=== PATIENT | male | born 1980 | race Caucasian/White ===

== ENCOUNTER 2016-12-10 01:57 | Inpatient (IN) | payer BC ==
--- NOTE | ~2016-12-10 | A ---
[facility] Nutrition Therapy DATE: 12/11/16 Patient: AVNI SHEA Physician: PRATIK Address: [address] [place] [address] Room/Bed: [address] [place] [address], Zip: [place] [address] Admit Date: 12/10/16 Date of : [birth year] Height: 6 1 Weight: 268 122 NUTRITIONAL ASSESSMENT: REASON: Consult re: DM diet education 36 y/o male admitted for angina PMH: DM, HTN, CAD Anthropometrics: ht: 6'1" wt: 268# (122 kg) BMI 35 Labs: Glu 212, Accuchecks 239-331, Na+ 132, Cl- 97, BUN 45, Creat 2.6, Phos 4.8, GFR 30.6 Diet: Consistent carbohydrate Assessment: Chart reviewed, events noted. Pt seen for consult re: DM diet education. RD internet programmer visited pt aT bedside and provided written and verbal education on carbohydrate counting, providing examples of healthy foods and meal ideas. RD internet programmer answered pt's questions on what fruits and vegetables are best for him to eat. No other questions at this time. RD will remain available. Intervention: 1. DM diet education Recommendations: 1. Follow DM diet when d/c'd. Encourage compliance of diet. 2. This pt would benefit from following-up with an outpatient dietitian to assist with diabetes management. RD will f/u per protocol. Respectfully, KAI IZQUIERDO, strategy intern Paris Levy MS, RD, LD [facility] cc: client file
--- NOTE | ~2016-12-10 | EKG ---
PATIENT: AVNI SHEA UNIT #: [id number] Ventricular Rate: 100 BPM Atrial Rate: 100 BPM P-R Interval: 130 ms QRS Duration: 108 ms Q-T Interval: 346 ms QTC Calculation(Bezet): 446 ms P Byers: 38 degrees Calculated R Byers: 25 degrees Calculated T Byers: 49 degrees Diagnosis Line: Normal sinus rhythm Diagnosis Line: Normal ECG Diagnosis Line: No previous ECGs available Diagnosis Line: Confirmed by KATHY BUTTERFIELD MD ([id number]) on Diagnosis Line: 12/11/2016 10:34:06 AM INTERPRETING MD: SCOUT MOHAMUD
--- NOTE | ~2016-12-10 | CO ---
Unit #: [id number] #: [id number] Patient: AVNI SHEA [id number] [address] [place], [place] [address] [id number] I MR#: [id number] NAME: AVNI SHEA ROOM: 554 Age: 36 Sex: M Admission Date: 12/10/2016 : 1980 Attending Physician: Kaitlin Randhawa M.D. Primary Care Physician: Primary Care Physician No CONSULTATION REPORT REFERRING PHYSICIAN Kelli Aleman NP CONSULTING SERVICE [facility]. CONSULTING PHYSICIAN Dr. Parker. REASON FOR CONSULTATION Acute kidney injury HISTORY OF PRESENT ILLNESS The patient is a 36-year-old white male with history of chronic kidney disease, hypertension, diabetes mellitus type 2, nonischemic cardiomyopathy, who was admitted with chest pain over the last four days. While working third shift last night, he developed acute tightening of the chest with associated nausea and vomited. He states his blood glucose was around 400 at the time. Creatinine was 2.8 upon arrival, with a blood glucose of 323. The patient is followed by my partner, Dr. Metcalf, for chronic kidney disease, but is unsure of his baseline creatinine and there are no prior values in the EMR here. He denies any recent diarrhea, notes some constipation. No recent anti-inflammatory use. He reports some intermittent ankle swelling. He also complains of some mild dysuria, but denies any gross hematuria or urinary hesitancy. He has a history of coronary artery disease status post percutaneous coronary intervention. Cardiac catheterization from September 2015 showed noncritical disease of right coronary artery. A left ventriculogram at that time demonstrated an ejection fraction of 40-45%. PAST MEDICAL HISTORY 1. Chronic kidney disease, baseline creatinine unknown at this time. 2. Hypertension. 3. Diabetes mellitus type 2, insulin dependent. 4. Coronary artery disease status post percutaneous coronary intervention. 5. Nonischemic cardiomyopathy, ejection fraction 40-45% on a LV gram during a cardiac catheterization September 2015. 6. Dyslipidemia. 7. Obstructive sleep apnea, untreated. FAMILY HISTORY No chronic kidney disease SOCIAL HISTORY Unit #: [id number] #: [id number] Patient: AVNI SHEA No tobacco, alcohol or illicit substances. HOME MEDICATIONS 1. Lisinopril 40 mg p.o. daily 2. Humalog 75/25 insulin 3. Vascepa 1 gram p.o. b.i.d. 4. Crestor 40 mg p.o. daily 5. Fenofibrate 150 mg p.o. daily 6. Glipizide 10 mg p.o. b.i.d. 7. Zofran as needed for nausea ALLERGIES No known drug allergies REVIEW OF SYSTEMS General: No fevers, chills or night sweats. "He denied vision changes or congestion." Cardiovascular: Chest pain, left substernal, off and on over the last four days. Intermittent lower extremity swelling also present. GI: Nausea with one episode of emesis last night, now improved. Constipation present. No melena. Genitourinary: Some dysuria present. No gross hematuria or hesitancy. Musculoskeletal: No joint pain, redness or swelling. Hematologic: No bruising or bleeding. Dermatologic: No rash. Psychiatric: No anxiety or depression. Neurologic: No headaches, dizziness, seizures, syncope. PHYSICAL EXAMINATION VITAL SIGNS: Temperature 98, blood pressure 135/82, heart rate 83, respirations 18. GENERAL: The patient is a pleasant, obese, young white male in no acute distress, comfortable and alert. HEENT: Oropharynx clear, moist. NECK: Supple. No JVD. LUNGS: Clear to auscultation bilaterally. No rales or rhonchi. CARDIAC: Regular rate and rhythm. No murmurs. Reproducible chest wall tenderness left upper sternum. ABDOMEN: Soft, nontender, nondistended. Bowel sounds are present. VASCULAR: No pedal or ankle edema. Two plus radial pulses. DERMATOLOGIC: Normal skin turgor. No rash. A tattoo present on his left forearm. MUSCULOSKELETAL: No joint warmth or erythema. NEUROLOGIC: Oriented to person, place and time. Speech normal. DIAGNOSTIC STUDIES LABORATORY: WBC 15.3, hemoglobin 15.5, platelets 315,000. Troponin less than 0.05 x3. Sodium 127, potassium 3.8, chloride 93, bicarbonate 23, BUN 43, creatinine 2.8, glucose 323, calcium 9.7. Liver function tests normal. CK total 112. Total cholesterol 301, triglycerides 1819, HDL 28, LDL unable to calculate. IMAGING: Chest x-ray shows no active disease. ASSESSMENT 1. Acute kidney injury: This is presumed as baseline creatinine is unknown at this time. This may represent prerenal azotemia from volume depletion given episode of hyperglycemia associated with Unit #: [id number] #: [id number] Patient: AVNI SHEA nausea and emesis last night. Also on NELSY inhibitor. Given dysuria, we will also check post void residual, although urinary retention is unlikely given his age. Electrolytes are stable, notable for mild hyponatremia (sodium corrects to 130, accounting for hyperglycemia). 2. Chronic kidney disease: Sees Dr. Metcalf in our office. We will request records. Multiple chronic kidney disease risk factors including diabetes mellitus, hypertension, atherosclerotic cardiovascular disease. We will check urinalysis for proteinuria and for dysuria. 3. Chest pain: Cardiology is following, cardiac enzymes are negative. Stress test was done earlier today, report pending. 4. History of coronary artery disease status post percutaneous coronary intervention. 5. Hypertension: Blood pressure is stable, but we will hold NELSY inhibitor in the setting of possible acute kidney injury. 6. Nonischemic cardiomyopathy: Ejection fraction 40% on left ventriculogram on cardiac catheterization last year. Compensated currently with no peripheral or pulmonary edema. 7. Diabetes mellitus type 2: The patient hyperglycemic with blood glucose of 323 upon admission. He states it was in the low 400s last night at work. 8. Hypertriglyceridemia: Severe. On extensive regimen including Crestor, Fenofibrate, Vascepa. Of note, CK total is normal. 9. Leukocytosis. PLAN 1. We will give one liter of normal saline this evening. 2. Hold Lisinopril. 3. Start beta nevaeh in place of this. 4. Check urinalysis and post void residual bladder scan. 5. We will review office records to ascertain baseline renal function. 6. Follow up stress test result. Thank you for involving me in patient's care. We will follow along. Dictated by... Oliverio Parker M.D. MMS/to TD: 12/10/2016 21:52 JOB #: [id number] Unit #: [id number] #: [id number] Patient: AVNI SHEA CONSULTATION REPORT Page 1 of 1 X X CONSULTATION REPORT
--- NOTE | ~2016-12-10 | CR72 ---
[facility] A Service of [facility] RADIOLOGY TEXT RESULTS PATIENT: AVNI SHEA LOCATION: [facility] 55- : [birth year] UNIT #: [id number] AGE: [address]: Kaitlin Randhawa MD SEX: M ORDER DR: [id number] [facility] [address] [facility]. [place], [place] [address] [id number] MR#: [id number] Acc #: [id number] NAME: AVNI SHEA : 1980 SEX: M STUDY DATE/TIME: 12/10/2016 2:35 UNIT: [facility] ROOM: [facility] STUDY DESCRIPTION: CR Chest Single View Portable Attending Physician: Kaitlin Randhawa M.D. Ordering Physician: Ed Jason Tamayo M.D. Primary Care Physician: Primary Care Physician No MEDICAL IMAGING REPORT This report is preliminary unless electronic signature is present EXAM Portable chest INDICATION Chest pain, shortness of air x2 days. FINDINGS A portable view of the chest was obtained. The heart size and vascularity are normal and the lungs are clear and the bones are unremarkable. IMPRESSION No active disease. Dictated by... Forrest Funk M.D. THIS IS AN ELECTRONICALLY VERIFIED REPORT Forrest Funk M.D. at 12/10/2016 5:48 AM OPAL/hermelinda TD: 12/10/2016 04:50 JOB #: [id number] MEDICAL IMAGING REPORT Page 1 of 1 COPY
--- NOTE | ~2016-12-10 | DS ---
Unit #: [id number] #: [id number] Patient: AVNI VARGAS [id number] [address] [place], [place] [address] [id number] I MR#: [id number] NAME: AVNI VARGAS ROOM: 554 Age: 36 Sex: M Admission Date: 12/10/2016 : 1980 Discharge Date: Attending Physician: Roberta Tamayo M.D. Primary Care Physician: Primary Care Physician No DISCHARGE SUMMARY PRIMARY CARE PHYSICIAN Paramjit Locke M.D. PRINCIPAL DIAGNOSES 1. Atypical chest pain with pending Cardiolite stress test results. 2. Acute kidney injury on chronic kidney disease stage 3-4. Discharge creatinine 2.6. 3. 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 4. Diabetes mellitus type 2 insulin-requiring and uncontrolled, pending hemoglobin A1c. 5. Severe Hypertriglyceridemia secondary to uncontrolled diabetes. 6. Hyperlipidemia. 7. Diabetic gastroparesis. 8. Diabetic peripheral neuropathy. 9. Obstructive sleep apnea, noncompliant with CPAP. 10. Obesity. 11. Hypertension. CONSULTANTS Stevo Edge M.D. - Cardiology Oliverio Parker M.D. - Nephrology PROCEDURES 1. Cardiolite stress test results, which are currently pending and will be dictated as an addendum. 2. Chest x-ray on December 10, 2016, without any acute findings. CLINICAL HISTORY/HOSPITAL COURSE Mr. Vargas is a 36-year-old male with chronic uncontrolled diabetes, renal disease and coronary artery disease, who was brought from work due to the fact that he was hyperglycemic and feeling fatigued in addition to nauseas. Please refer to H and P for further details. The patient was also complaining of atypical left-sided chest pain and was initially admitted by Cardiology for evaluation. In regards to the patient's chest pain, troponins remain negative. He did undergo a Cardiolite stress test, but results are currently pending. I will follow up on these. The patient is followed by Dr. Greg Li, in [place]. Per our records, the patient had a catheterization in 2016, with RCA disease, which was minimal and he was undergoing medical treatment only. We will be sure he is back on aspirin in addition to appropriate other medications. Assuming Cardiolite stress test is negative, he can Unit #: [id number] #: [id number] Patient: AVNI VARGAS follow up with Dr. Li as an outpatient. The patient was also hyperglycemic upon presentation. Glucose upon presentation was 323. The patient is taking Novolog 75/25 four times a day at home per sliding scale. He tells me when sugar gets below 200 he feels shaky and does not take his insulin. I suspect his A1c is significantly elevated greater than 12 and he needs better sugar control. However, he has had no evidence of any hyperosmolar state here or DKA. I am going to schedule his Novolog 75/25 t.i.d. and he will receive diabetic education. He will follow up with his primary care provider. He would benefit from a long-acting and short-acting insulin nursing home if this is not cost prohibitive. The patient is also complaining of nausea, which is chronic. He describes early satiety and nausea associated with eating. I suspect due to his uncontrolled diabetes, he has diabetic gastroparesis and I am going to place him on a low-dose of Reglan. Ultimately he needs better sugar control. The patient is also found to have significant hypertriglyceridemia with triglycerides greater than 1400. LDL could not be calculated. We will continue medications, but ultimately again, he needs diet control and sugar control. In regards to the patient's acute kidney injury, creatinine upon presentation was elevated at 2.8. The patient has seen Dr. Metcalf with [facility] in 2016. He is seen in the hospital by Dr. Metcalf's partner, Dr. Parker. NELSY inhibitor was held and normal saline was given and creatinine is now down to 2.6. I will follow recommendations of Nephrology upon discharge, i.e. when appropriate and medication adjustments. I suspect however, this creatinine unfortunately may not be too far from the patient's baseline. Assuming renal function is near baseline and stress test is negative, I think he can be safely discharged home, but he will need very close outpatient follow up. DISCHARGE CONDITION Stable. DISCHARGE STATUS Discharge to home. DISCHARGE MEDICATIONS 1. Reglan 5 mg p.o. t.i.d. with meals. 2. Fenofibrate 160 mg daily. 3. Lipitor 80 mg at bedtime. 4. Humalog 75/25, fourteen units subcutaneous t.i.d. 5. Vascepa 1 gram p.o. b.i.d. 6. Aspirin 81 mg daily Any other changes in medications will be dictated as an addendum. Please note I am holding the patient's Glucotrol given I do not feel like he is getting any benefit from this at this point. I am also changing Zofran given I feel Reglan will likely control his nausea better. DISCHARGE INSTRUCTIONS The patient was instructed to follow a heart healthy diet. He should Unit #: [id number] #: [id number] Patient: AVNI VARGAS obtain AccuCheks at least three times daily at home. Follow a scheduled dose of Novolog with adjustments based upon his sliding scale at home. He can increase activity as tolerated. FOLLOWUP As an outpatient, the patient will follow up with Dr. Greg Li in approximately one month. The patient will follow up with Dr. Metcalf in one month and he will follow up with his primary care provider, Dr. Paramjit Locke in one month as well. TIME SPENT ON DISCHARGE 52 minutes. Dictated by... Roberta Tamayo M.D. [facility]/rachele TD: 12/11/2016 17:51 JOB #: [id number] DISCHARGE SUMMARY Page 1 of 1 X Roberta Tamayo MD X DISCHARGE SUMMARY
--- NOTE | ~2016-12-10 | DS ---
Unit #: [id number] #: [id number] Patient: AVNI SHEA [id number] [address] [place], [place] [address] [id number] I MR#: [id number] NAME: AVNI SHEA ROOM: 554 Age: 36 Sex: M Admission Date: 12/10/2016 : 1980 Discharge Date: 12/12/2016 Attending Physician: Roberta Tamayo M.D. Primary Care Physician: No Primary Care Physician DISCHARGE SUMMARY ADDENDUM ADDITIONAL DISCHARGE DIAGNOSES 1. Diabetes mellitus type 2, insulin requiring and uncontrolled with hemoglobin A1c of 11.2. 2. Chronic kidney disease, stage 3, with discharge creatinine of 1.9, baseline creatinine approximately 1.8. ADDITIONAL PROCEDURES Cardiolite stress test which was negative. ADDITIONAL DISCHARGE DIAGNOSES Coronary artery disease, nonobstructive. HOSPITAL COURSE The patient remained overnight due to the fact that his baseline creatinine was found to be approximately 1.8 and he was still in acute renal failure. He was monitored overnight and today creatinine is now down to 1.9 which is essentially patient's baseline. We are going to discontinue lisinopril on discharge. I have discussed with him and his that his kidney disease is secondary to his poor diabetes control and he will follow with nephrology as an outpatient. The patient's sugars remained elevated. I did discuss with him perhaps transitioning to mealtime insulin in addition to a long acting insulin but I believe this is cost prohibitive at this time. I am going to increase his NovoLog 75/25 to 20 units subcu t.i.d. He states he does not follow a diabetic diet at home and I encouraged him to begin to do so given this portion is under his control and it is adversely affecting his health. The patient, today, is otherwise stable. He is still having nausea after eating. I am going to schedule his Reglan rather than p.r.n. and this can be followed up by the nurse practitioner. DISCHARGE CONDITION Stable. DISCHARGE STATUS Discharge to home. DISCHARGE MEDICATIONS As previously noted with the increase of NovoLog 75/25 to 20 units subcu t.i.d.; Coreg 3.125 mg p.o. b.i.d. Unit #: [id number] #: [id number] Patient: AVNI SHEA FOLLOWUP The patient needs a followup BMP in one week. He should follow up with his primary twisting department end finder, Dr. Metcalf, in two to four weeks. Time spent on discharge today - 33 minutes. Dictated by... Roberta Tamayo M.D. SONG/hung TD: 12/16/2016 06:07 JOB #: [id number] DISCHARGE SUMMARY Page 1 of 1 X Roberta Tamayo MD X DISCHARGE SUMMARY
--- NOTE | ~2016-12-10 | HP ---
Unit #: [id number] #: [id number] Patient: AVNI SHEA [id number] [id number] [facility]. [place], [place] [address] [id number] I MR#: [id number] NAME: AVNI SHEA ROOM: 554 Age: 36 Sex: M Admission Date: 12/10/2016 : 1980 Attending Physician: Kaitlin Randhawa M.D. HISTORY AND PHYSICAL HISTORY OF PRESENT ILLNESS This is a pleasant 36-year-old male with a past medical history of hypertension, hyperlipidemia, diabetes mellitus which is poorly controlled, and reported history of MD with stent placement. The patient states he typically follows with Dr. Greg Li and had a cardiac catheterization approximately four months ago at [facility]. I currently have no records available for review. He also reports he had a stent placed at that time. The patient presented after being at work. He works for [employer] and states he was working and began to have chest pain, sweating, and some nausea, as well as vomiting. He states he also noticed his blood sugar was extremely high. He sat down to rest. His boss was concerned and therefore brought him into the emergency room for evaluation. On arrival to the emergency room, the patient was complaining of left-sided chest pain. No radiation. He also complained of vomiting for three days and elevated blood sugar. In the emergency room, he received sublingual nitroglycerin with little to no relief. EKG was performed which showed normal sinus rhythm and no acute ischemic change. Point of care troponin has been negative. In the emergency room, he also received 325 mg of aspirin. A chest x-ray was performed which showed no active disease. It is also notable that the patient did have an elevated glucose on arrival with glucose of 323 and creatinine elevated up to 2.8, as well as a sodium level of 127. He denies any history of kidney issues in the past and does not follow with any family specialist. His potassium was normal at 3.8. I have no baseline creatinine to compare to. At present, upon talking to the patient, he states his chest pain is still present. A stat EKG has been ordered, as well as stat cardiac enzymes. PAST MEDICAL HISTORY 1. Hypertension. 2. Dyslipidemia. 3. Diabetes mellitus diagnosed approximately 10 years ago. 4. Coronary artery disease. Patient states he had an MD and stent placement approximately four months ago at [facility]. However, currently I have no records for review. 5. Obesity. 6. History of collapsed lung. PAST SURGICAL HISTORY 1. Cardiac catheterization. Unit #: [id number] #: [id number] Patient: AVNI SHEA 2. Chest tube placement in the past secondary to collapsed lung. HOME MEDICATIONS 1. Lisinopril 40 mg p.o. daily. 2. Humalog mix 75/25. 3. Vascepa 1 g p.o. b.i.d. 4. Crestor 40 mg p.o. daily. 5. Fenofibrate 160 mg p.o. daily. 6. Glucotrol XL 10 mg p.o. b.i.d. 7. Zofran 8 mg p.o. t.i.d. p.r.n. nausea. SOCIAL HISTORY The patient is a reformed smoker. He smoked approximately one pack a day about every week and a half and states he quit about 10 years ago. Reports social alcohol use. Denies illicit drug use. He lives with his and is currently employed. FAMILY HISTORY Kidney failure and end-stage renal disease in his mother, hypertension in his father, and early coronary artery disease in his brother in his 30s. ALLERGIES No known drug allergies. DIAGNOSTIC STUDIES LABORATORY: Glucose 323, BUN 43, and creatinine 2.8. Again, I have no prior creatinine for comparison; unclear of what patient's baseline is. Sodium 127, potassium 3.8, chloride 93, and CO2 of 23. Liver function tests were normal. Initial cardiac enzymes have been negative. TSH is 2.89. Hemoglobin 15.5, hematocrit 44.7, WBC 15.3, and platelet count of 315,000. IMAGING: Chest x-ray shows no active disease. Heart size is normal. Lungs are clear. CARDIOLOGY: EKG shows normal sinus rhythm, rate of 81 beats per minute, and QTc interval of 457 msec. No acute ischemic changes noted. IMPRESSION 1. Atypical chest pain, rule out acute coronary syndrome. 2. Reported history of coronary artery disease with reported history of myocardial infarction and stent placement at [facility] approximately four months ago. 3. Poorly-controlled diabetes mellitus. 4. Dyslipidemia with elevated triglycerides. 5. Acute kidney injury. Unclear if the patient has any chronic kidney disease, as there is no previous creatinine for comparison. 6. Obesity. 7. Possible obstructive sleep apnea. PLAN This is a patient with atypical chest pain. He has a reported history of coronary artery disease with prior stent placement. He states he is followed by Dr. Greg Li in [place], [place]. However, I currently have no records available for review, and those are being requested. It is also notable that the patient is not on any antiplatelet therapy which seems odd or aspirin for that matter. Will continue to trend cardiac enzymes. I will get a stat EKG now as the patient is complaining of Unit #: [id number] #: [id number] Patient: AVNI SHEA continued chest pain. Check 2D echocardiogram if there is no recent echo for comparison. The patient states he had one approximately four months ago. Will resume home medications with the addition of holding his NELSY inhibitor secondary to acute kidney injury and elevated creatinine of 2.8. Will ask HIPS to see for medical management in regards to his diabetes. This case has been discussed with Dr. Edge. Will also ask Dr. Baker of the renal service to see the patient due to his elevated creatinine. The patient is very high risk for coronary artery disease. If his troponin is negative, will go ahead and proceed with ischemic workup today with exercise Cardiolite. He will be kept n.p.o. for now. Further recommendations pending Dr. Edge' assessment. Dictated by Kelli Cardenas A.P.R.N. for Kelsie Reyna/am TD: 12/10/2016 15:15 JOB #: [id number] HISTORY AND PHYSICAL Page 1 of 1 X Kelli Cardenas APRN X HISTORY AND PHYSICAL
--- NOTE | ~2016-12-10 | EKG ---
PATIENT: AVNI SHEA UNIT #: [id number] Ventricular Rate: 81 BPM Atrial Rate: 81 BPM P-R Interval: 152 ms QRS Duration: 106 ms Q-T Interval: 394 ms QTC Calculation(Bezet): 457 ms P Seaside: 35 degrees Calculated R Seaside: 6 degrees Calculated T Seaside: 45 degrees Diagnosis Line: Normal sinus rhythm Diagnosis Line: Normal ECG Diagnosis Line: When compared with ECG of 10-DEC-2016 02:10, Diagnosis Line: (unconfirmed) Diagnosis Line: No significant change was found Diagnosis Line: Confirmed by KATHY BUTTERFIELD MD ([id number]) on Diagnosis Line: 12/11/2016 10:37:02 AM INTERPRETING MD: SCOUT MOHAMUD
--- NOTE | ~2016-12-10 | CO ---
Unit #: [id number] #: [id number] Patient: AVNI SHEA [id number] [address] [address] [id number] MR#: [id number] NAME: AVNI SHEA ROOM: 554 Age: 36 Sex: M Admission Date: 12/10/2016 : 1980 Attending Physician: Kaitlin Randhawa M.D. Consultation Date: 12/10/2016 CONSULTATION REPORT REASON FOR CONSULT Medical management. HISTORY OF PRESENT ILLNESS The patient is a 36-year-old male admitted to [facility] secondary to chest pain. At this time, he is status post stress test, and the results of that test are not available to me. The patient has hypertension which has been well controlled during this admission. He has hyperlipidemia, on treatment, but is poorly controlled. He is diabetic which also seems poorly controlled. During this admission, he was also noted to have some acute kidney injury with a creatinine of 2.8. PAST MEDICAL HISTORY 1. Hypertension. 2. Hyperlipidemia. 3. Type 2 diabetes. 4. Coronary artery disease, status post stent. 5. Obesity. 6. History of "collapsed lung." PAST SURGICAL HISTORY 1. Cardiac catheterization. 2. Chest tube placement. SOCIAL HISTORY The patient is a former smoker. Occasional alcohol use and no illegal drug use. FAMILY HISTORY Kidney failure, end-stage renal disease, and hypertension. HOME MEDICATIONS 1. Lisinopril 40 mg daily. 2. Humalog 75/25. 3. Vascepa 1 g p.o. b.i.d. 4. Crestor 40 mg p.o. daily. 5. Fenofibrate 160 mg p.o. daily. 6. Glucotrol XL 100 mg p.o. b.i.d. 7. Zofran 8 mg p.o. t.i.d. p.r.n. nausea. ALLERGIES Unit #: [id number] #: [id number] Patient: AVNI SHEA No known drug allergies. REVIEW OF SYSTEMS A 10-point review of systems was obtained and negative except as per History of Present Illness. PHYSICAL EXAMINATION VITAL SIGNS: Temperature 97.7, pulse 89, and blood pressure 132/85. GENERAL: A 36-year-old male in no acute distress who appears stated age. HEENT: Pupils equally round. Extraocular movements intact. Mucous membranes are dry. NECK: Supple. No JVD, no lymphadenopathy. CARDIAC: Regular rate and rhythm. No murmurs, gallops, or rubs. LUNGS: Clear to auscultation bilaterally. ABDOMEN: Nontender and nondistended. Positive bowel sounds. EXTREMITIES: No clubbing, cyanosis, or edema. They are warm and dry. PSYCHIATRIC: Alert and oriented x3. Affect is appropriate. NEUROLOGIC: Cranial nerves II-XII intact grossly. Patient moves all extremities equally and with purpose. SKIN: No rashes, bruises, or ulcers. MUSCULOSKELETAL: No muscle or joint pain. No muscle or joint swelling. DIAGNOSTIC STUDIES LABORATORY: Creatinine 2.8, sodium 127, and blood sugars are high with a range of 223 to 327. White count is a little high at 15.3. IMAGING: Chest x-ray is negative. ASSESSMENT AND PLAN 1. Chest pain. I do not have a result of the patient's stress test, but given the transfer of service request, I presume it is negative, and I will await input from Cardiology on this. If the patient has a negative stress test, the most likely cause is reflux given the patient's verbal history of occasional heartburn. He denies a sensation of food sticking however. He states he takes Tums only for relief. 2. Acute kidney injury. The patient has been started on fluid by Renal consult. Repeat renal function has been ordered for the morning. 3. Hypertension. Continue home medications. 4. Diabetes. I have added Levemir 10 units subcutaneous at bedtime. 5. Prophylaxis. The patient will be started on sequential compression devices. 1. Dictated by... Babatunde Hernandez M.D. CAM/shakeel TD: 12/10/2016 18:10 JOB #: [id number] Unit #: [id number] #: [id number] Patient: AVNI SHEA CONSULTATION REPORT Page 1 of 1 X Babatunde Hernandez MD CONSULTATION REPORT
[2016-12-10 02:45] LABS: POC - CKMB 5.1 ng/mL (0.0-7.9); POC - TROPONIN <0.05 ng/mL (<=0.05)
[2016-12-10 02:48] LABS: BASOPHIL# 0.2 X10e3 (0-0.3); EOSINOPHIL# 0.1 X10e3 (0-0.7); EOSINOPHIL% 0.8 % (0.0-7.0); HEMATOCRIT 44.7 % (38.0-50.0); HEMOGLOBIN 15.5 gm/dL (13.0-16.0); LYMPHOCYTE# 2.8 X10e3 (1.0-3.5); LYMPHOCYTE% 18.1 % (17.0-45.0); MEAN CELL VOLUME 84.3 FL (83-96); MEAN CORPUSCULAR HEMOGLOBIN 29.2 PG (28-34); MEAN CORPUSCULAR HGB CONC 34.7 g/dL (30-36); MEAN PLATELET VOLUME 9.2 FL (6.5-11.5); MONOCYTE# 1.3 X10e3 (0-1.0); MONOCYTE% 8.8 % (3.0-12.0); NEUTROPHIL# 10.9 X10e3 (1.5-7.1); NEUTROPHIL% 71.3 % (40-75); PLATELET COUNT 315 X10e3 (140-420); RED BLOOD COUNT 5.31 X10e (3.90-5.60); RED CELL DISTRIBUTION WIDTH 13.6 % (11.0-15.5); WHITE BLOOD COUNT 15.3 X10e3 (4.0-10.5)
[2016-12-10 02:49] LABS: DIFF IND YES
[2016-12-10 03:09] LABS: ALBUMIN SERUM 4.6 g/dL (3.5-5.0); BILIRUBIN,TOTAL 0.9 mg/dL (0.2-2.0); BUN/CREATININE RATIO 15.35; CALCIUM SERUM 9.7 mg/dL (8.4-10.2); CREATININE SERUM 2.8 mg/dL (0.6-1.4); PLATELET ESTIMATE NORMAL (NORMAL); POTASSIUM 3.8 mmol/L (3.5-5.1); PROTEIN TOTAL SERUM 7.9 g/dL (6.0-8.3); RBC NORMAL YES
[2016-12-10 03:13] LABS: BILIRUBIN, DIRECT 0.1 mg/dL (0.0-0.2); BILIRUBIN,INDIRECT 0.8 mg/dL (0.0-0.9)
[2016-12-10 04:02] LABS: POC - CKMB 1.9 ng/mL (0.0-7.9); POC - TROPONIN <0.05 ng/mL (<=0.05)
[2016-12-10] MEDS ORDERED: PRINIVIL40 MG PO (06:10)
[2016-12-10] MEDS ORDERED: HUMALOG MI100 UNIT/2 SUBQ (06:11)
[2016-12-10] MEDS ORDERED: VASCEPA1 GM PO (06:11)
[2016-12-10] MEDS ORDERED: CRESTOR40 MG PO (06:12)
[2016-12-10] MEDS ORDERED: FENOFIBRATE160 MG PO (06:13)
[2016-12-10] MEDS ORDERED: ISOSORBIDE DINI30 MG PO (06:14)
[2016-12-10 11:38] LABS: %MB 2.1 % (0.0-4.0); MB 2.4 ng/ml
[2016-12-10] MEDS ORDERED: GLUCOTROL XL10 MG PO (12:14)
[2016-12-10] MEDS ORDERED: LIPITOR40 MG PO (12:15)
[2016-12-10] MEDS ORDERED: ONDANSETRON HCL4 MG PO (12:16)
[2016-12-10 12:43] LABS: CHOLESTEROL 301 mg/dL (0-200); HDL CHOLESTEROL 28 mg/dL (29-75); TRIGLYCERIDES 1819 mg/dL (10-160)
[2016-12-10 17:09] LABS: %MB 2.3 % (0.0-4.0); MB 2.3 ng/ml
[2016-12-11 06:18] LABS: HEMATOCRIT 39.7 % (38.0-50.0); MEAN CELL VOLUME 84.9 FL (83-96); MEAN CORPUSCULAR HEMOGLOBIN 29.8 PG (28-34); MEAN CORPUSCULAR HGB CONC 35.1 g/dL (30-36); MEAN PLATELET VOLUME 8.8 FL (6.5-11.5); RED BLOOD COUNT 4.68 X10e (3.90-5.60); RED CELL DISTRIBUTION WIDTH 13.2 % (11.0-15.5); WHITE BLOOD COUNT 8.2 X10e3 (4.0-10.5)
[2016-12-11 06:50] LABS: BUN/CREATININE RATIO 17.3; CALCIUM SERUM 9.1 mg/dL (8.4-10.2); CREATININE SERUM 2.6 mg/dL (0.6-1.4); GLOM FILT RATE Estimated 30.6 mL/min (>60); PHOSPHOROUS 4.8 mg/dL (2.5-4.6); POTASSIUM 4.6 mmol/L (3.5-5.1)
[2016-12-11 09:09] LABS: URINE APPEARANCE CLEAR; URINE BILIRUBIN NEG (NEG); URINE BLOOD 1+ (NEG); URINE COLOR YELLOW; URINE GLUCOSE 100 MG/DL (NEG); URINE KETONE NEG (NEG); URINE LEUKOCYTE ESTERASE TRACE (NEG); URINE NITRATE NEG (NEG); URINE PH 5.5 (5-8); URINE PROTEIN 2+ (NEG); URINE SPECIFIC GRAVITY 1.017 (1.003-1.035); URINE UROBILINOGEN 0.2 MG/DL (NEG)
[2016-12-11 09:11] LABS: URBCS1 AUWI 0-2 /[HPF] (0-2); URINE BACTERIA AUWI NEG (NEGATIVE); URINE SQUAMOUS EPITHELIAL CELL NONE SEEN /[HPF]
[2016-12-11 09:19] LABS: AMPHETAMINE NEG (NEG); BARBITURATES NEG (NEG); BENZODIAZEPINES NEG (NEG); COCAINE NEG (NEG); MARIJUANA NEG (NEG); OPIATES NEG (NEG); TRICYCLIC ANTIDEPRESSANTS NEG (NEG); U METHADONE NEG (NEG)
[2016-12-12 07:43] LABS: HEMATOCRIT 41.2 % (38.0-50.0); HEMOGLOBIN 14.5 gm/dL (13.0-16.0); MEAN CELL VOLUME 85.2 FL (83-96); MEAN CORPUSCULAR HEMOGLOBIN 29.9 PG (28-34); MEAN CORPUSCULAR HGB CONC 35.1 g/dL (30-36); RED BLOOD COUNT 4.84 X10e (3.90-5.60); RED CELL DISTRIBUTION WIDTH 13.3 % (11.0-15.5); WHITE BLOOD COUNT 6.7 X10e3 (4.0-10.5)
[2016-12-12 08:11] LABS: BUN/CREATININE RATIO 18.42; CALCIUM SERUM 9.5 mg/dL (8.4-10.2); CREATININE SERUM 1.9 mg/dL (0.6-1.4); GLOM FILT RATE Estimated 44.7 mL/min (>60); POTASSIUM 4.2 mmol/L (3.5-5.1)
[2016-12-12] MEDS ORDERED: COREG PO (10:07)
[2016-12-12] MEDS ORDERED: REGLAN5 MG PO (10:08)
[2016-12-12] MEDS ORDERED: ASPIRIN81 MG PO (10:09)
== END 2016-12-12 15:45 | disposition home or self-care (01) | DRG 683 ==
LOC: CED 01:57 → CEDOF 04:05 → C5B 04:05 → CED 04:12 → CEDOF 04:12 → C5B 04:12 → CEDOF 04:44 → C5B 12-11 07:22
PROVIDERS: Emergency Medicine; Internal Medicine; Internal Medicine Cardiovascular Disease; Nurse Practitioner
DX: N17.9 Acute kidney failure, unspecified (principal); I42.9 Cardiomyopathy, unspecified; E11.22 Type 2 diabetes mellitus with diabetic chronic kidney disease; K31.84 Gastroparesis; E11.65 Type 2 diabetes mellitus with hyperglycemia; E11.43 Type 2 diabetes mellitus with diabetic autonomic (poly)neuropathy; R07.89 Other chest pain; I25.2 Old myocardial infarction; I25.10 Atherosclerotic heart disease of native coronary artery without angina pectoris; E78.5 Hyperlipidemia, unspecified; G47.33 Obstructive sleep apnea (adult) (pediatric); E66.9 Obesity, unspecified; I12.9 Hypertensive chronic kidney disease with stage 1 through stage 4 chronic kidney disease, or unspecified chronic kidney disease; Z79.4 Long term (current) use of insulin; E78.1 Pure hyperglyceridemia; D72.829 Elevated white blood cell count, unspecified; Z68.38 Body mass index [BMI] 38.0-38.9, adult; N18.3 Chronic kidney disease, stage 3 (moderate); R30.0 Dysuria
CPT/HCPCS: 36415; 71010; 78452; 80048; 80061; 80069; 80076; 80307; 81003; 82550; 82553; 82947; 83036; 83880; 84443; 84484; 85025; 85027; 93005; 93017; 99285; A9500; J1650; J1815; J2785